=== PATIENT | female | born 1930 | race Caucasian/White ===

== ENCOUNTER 2016-10-22 12:28 | Inpatient (IN) | payer MEDICARE ==
[~2016-10-22] VITALS: Ht 167.6 cm; Wt 47.7 kg
[2016-10-22 13:48] LABS: HEMATOCRIT 38.9 % (36.0-48.0); HEMOGLOBIN 12.4 g/dL (12-16); MCH 31.4 pg (26.0-34.0); MCHC 31.9 g/dL (31.0-37.0); MCV 98.5 fL (80.0-100.0); MEAN PLATELET VOLUME 11.1 fL (7.4-10.4); PLATELET COUNT 119 10x3/uL (130-400); RBC 3.95 10x6/uL (4.00-5.40); RDW 13.6 % (11.5-14.5); WBC 27.5 10x3/uL (4.8-10.8)
[2016-10-22 14:08] LABS: ALBUMIN 3.6 g/dL (3.4-5.0); ANION GAP 12.1 mmol/L (8-16); BILIRUBIN - TOTAL 0.17 mg/dL (0.2-1.3); CALCIUM 9.8 mg/dL (8.5-10.1); CARBON DIOXIDE 26.8 mmol/L (21.0-32.0); CREATININE - SERUM 0.8 mg/dL (0.6-1.3); EOSINOPHILS 1 % (0-7); LYMPHOCYTES 14 % (15-50); NEUTROPHILS 80 % (40-80); POTASSIUM - SERUM 3.9 mmol/L (3.5-5.1); PROTEIN - SERUM 7.7 g/dL (6.4-8.2)
[2016-10-22 14:09] LABS: PLATELET ESTIMATE NORMAL; PLATELET MORPHOLOGY PLT CLUMPS PRESENT
[2016-10-22 14:13] LABS: APPEARANCE HAZY (CLEAR); BILIRUBIN NEGATIVE (NEGATIVE); COLOR YELLOW (YELLOW); GLUCOSE NEGATIVE (NEGATIVE); KETONE NEGATIVE (NEGATIVE); LEUKOCYTE ESTERASE 1+ (NEGATIVE); NITRITE NEGATIVE (NEGATIVE); PROTEIN NEGATIVE (NEGATIVE); UROBILINOGEN NORMAL (NORMAL)
[2016-10-22 14:21] LABS: RED CELLS - URINE 0-5 /hpf (0-5); WHITE CELLS - URINE 25-50 /hpf (0-5)
[2016-10-22 14:22] LABS: BACTERIA FEW /hpf (NONE SEEN); EPITHELIAL CELLS OCC /hpf (0-5); HYALINE CAST RARE /lpf (NONE SEEN)
--- NOTE | 2016-10-22 18:46 | NUR ---
HOUSE SUP CALLED ABOUT PT DO TO ER DOING [id number] FSBS. CHECHED PT AT 1840, BS 97. AWAITING A CALL BACK.
--- NOTE | 2016-10-22 18:48 | NUR ---
PT ARRIVED TO FLOOR VIA BED WITH ER STAFF. ER WAS CHECKING FSBS Q30MIN - Q1HR. CHECHED BLOOD SUGAR WHEN PT ARRIVED TO FLOOR. FSBS WAS 97. ROCEPHIN BROUGHT WITH PT BECAUSE PT C/O PAIN AT SITE. TRIED TO FLUSH PT'S IV AND PT WAS IN PAIN. WAS NOT ABLE TO DRAW BACK FROM IV. IV SITE IS NOT SWOLLEN, IS SLIGHTLY RED. PT HAS HX OF DEMENTIA. FAMILY AT BEDSIDE. BED AT LOWEST POSITION, CALL BAH IN USE/REACH, SIDE RAILS UP X2. BP 109/49 LEFT ARM RESP 18 POX 99% ON RA TEMP 98.1 WILL CONTINUE TO MONITOR.
--- NOTE | 2016-10-22 19:01 | NUR ---
RECHECKED FSBS AND WAS 96
[2016-10-22 20:00] VITALS: BP 123/61
--- NOTE | 2016-10-22 20:38 | NUR ---
2000) REC'D. PT. ALERT ORIENTED TO PERSON. SON AT BEDSIDE DR. BURTON HERE.IV SITED LFA BY DAY SHIFT CHARGE NURSE #22.COMBATIVE DURING PROCEDURE.WILL CONTINUE TO MONITOR FSBS AND FOLLOW CURRENT PLAN OF CARE.
[2016-10-23] VITALS: BP 107/41
[2016-10-23 06:09] LABS: BASOPHILS 0.4 % (0-2); EOSINOPHILS 4.3 % (0-7); HEMATOCRIT 33.5 % (36.0-48.0); HEMOGLOBIN 10.6 g/dL (12-16); IMMATURE GRANULOCYTES 0.2 % (0-5); LYMPHOCYTES 27.8 % (15-50); MCH 30.9 pg (26.0-34.0); MCHC 31.6 g/dL (31.0-37.0); MCV 97.7 fL (80.0-100.0); MEAN PLATELET VOLUME 11.3 fL (7.4-10.4); MONOCYTES 7.9 % (2-11); NEUTROPHILS 59.4 % (40-80); RBC 3.43 10x6/uL (4.00-5.40)
[2016-10-23 06:10] LABS: PLATELET COUNT 284 10x3/uL (130-400)
[2016-10-23 06:38] LABS: ALBUMIN 2.7 g/dL (3.4-5.0); ANION GAP 11.5 mmol/L (8-16); BILIRUBIN - TOTAL 0.31 mg/dL (0.2-1.3); CALCIUM 8.7 mg/dL (8.5-10.1); CARBON DIOXIDE 24.9 mmol/L (21.0-32.0); CREATININE - SERUM 0.8 mg/dL (0.6-1.3); POTASSIUM - SERUM 4.4 mmol/L (3.5-5.1); PROTEIN - SERUM 6.5 g/dL (6.4-8.2)
--- NOTE | 2016-10-23 07:52 | NUR ---
AM ROUNDING- RECEIVED REPORT FROM CELEBRITY MANAGER NURSE LUZMARIA. PT IS CURRENTLY LAYING IN BED ON BACK WITH EYES CLOSED RESTING. GUEST IS AT BEDSIDE. ON 02 AT 2L VIA NC. NO MONITOR. IV SEEN TO LEFT FOREARM WITH D5NS RUNNING AT 125CC. BED IS IN LOW POSITION, SIDE RAILS ARE UP X2, AND CALL LIGHT IS IN REACH. WILL CONTINUE TO MONITOR AND CONTINUE WITH PLAN OF CARE.
[2016-10-23 08:00] VITALS: BP 126/48; BP 127/50
--- NOTE | 2016-10-23 09:15 | NUR ---
PTS BLOOD SUGAR IS 314 CURRENTLY.
--- NOTE | 2016-10-23 09:29 | NUR ---
UPON DOING PTS AM MEDICATIONS, NOTICED IV SITE WAS LEAKING. ATTEMPTED TO CLEAN AND RESITE PTS IV HOWEVER IV CATHETER CAME OUT, CATH TIP INTACT. COVERED SITE WITH 2X2 GUAZE PADS AND SECURED WITH TAPE. WILL ATTEMPT TO RESITE PT.
--- NOTE | 2016-10-23 11:07 | NUR ---
TUCKER ISLAS SITED PT WITH 22G IV CATHETER TO LEFT UPPER ARM.
[2016-10-23 12:00] VITALS: BP 126/48
[2016-10-23 12:15] VITALS: BMI 16.9
--- NOTE | 2016-10-23 15:14 | NUR ---
DR. BURTON ON UNIT NOW. RECEIVED VERBAL ORDERS TO PLACE PT ON SLIDING SCALE AND TO D/C IV FLUIDS. WILL DO ORDERED AND CONTINUE TO MONITOR.
[2016-10-23 16:00] VITALS: BP 123/44
--- NOTE | 2016-10-23 17:12 | NUR ---
PT IS CURRENLTY SITTING UP IN BED, SON IS AT BEDSIDE ASSISTED PT EAT DINNER. NO NEED AT CURRENT TIME. BED IS IN LOW POSITION, SIDE RAILS ARE UP X2, CALL LIGHT IS IN REACH, AND NON-SKID SOCKS ARE ON. WILL CONTINUE TO MONITOR.
--- NOTE | 2016-10-23 17:48 | NUR ---
0968- UPON DOING PTS SHIFT ASSESSMENT, I NOTICED PTS LEFT FOREARM WAS VERY RED. PT DENIES ANY PAIN AT SITE. PTS SON STATES THAT IT HAS BEEN RED LIKE THAT SINCE PT HAS BEEN IN THE HOSPTIAL. WILL CONTINUE TO MONITOR.
--- NOTE | 2016-10-23 18:17 | NUR ---
1130- SINCE PTS IV CATHETER CAME OUT IV FLUIDS HAVE NOT YET BEEN RESTARTED. WHEN CHECKED PTS BLOOD SUGAR THIS AM IT WAS 316. WILL HOLD IV FLUIDS (D5NS) UNTIL DR. BURTON MAKES ROUNDS TO ASK HER ABOUT THIS. WILL CONTINUE TO MONITOR.
--- NOTE | 2016-10-23 18:18 | NUR ---
CALLED DR. BURTON AND RECEIVED IMMEDIATE CALLBACK REGARDING PTS LEFT FOREARM AND HOW RED IT IS. I INFORMED DR. BURTON OF PTS IV CATHETER COMING OUT THIS AM AND THAT PT WAS RECEIVING D5NS AT 125CC/HR AT THAT CURRENT TIME. I INFORMED DR. BURTON THAT D5 COULD HAVE CAUSED THE REDNESS TO PTS FOREARM BUT I WASN'T SURE, DR. BURTON STATES D5 COULD CAUSE IT TO BE RED LIKE THAT. I INFORMED DR. BURTON THAT PT DENIES ANY PAIN FROM SITE AND THAT I JUST WANTED HER TO BE AWARE OF THIS. I ALSO INFORMED DR. BURTON THAT PTS SON STATES THAT PTS ARM HAS BEEN RED LIKE THAT SINCE BEING IN HOSPITAL BUT NOT RED. NO NEW ORDERS RECEIVED. WILL CONTINUE TO MONITOR.
--- NOTE | 2016-10-23 19:50 | NUR ---
ASSISTED PT TO BATHROOM AND BACK TO BED.
[2016-10-23 20:00] VITALS: BP 135/57
--- NOTE | 2016-10-23 22:50 | NUR ---
ASSISTED PT TO BATHROOM AND BACK TO BED.
--- NOTE | 2016-10-24 02:43 | NUR ---
RESTING IN BED WITH NO DISTRESS. CPOC.
[2016-10-24 04:00] VITALS: BP 111/85
[2016-10-24 04:39] LABS: BASOPHILS 0.6 % (0-2); EOSINOPHILS 3.8 % (0-7); HEMATOCRIT 31.3 % (36.0-48.0); HEMOGLOBIN 10.2 g/dL (12-16); IMMATURE GRANULOCYTES 0.2 % (0-5); MCH 31.7 pg (26.0-34.0); MCHC 32.6 g/dL (31.0-37.0); MCV 97.2 fL (80.0-100.0); MEAN PLATELET VOLUME 10.3 fL (7.4-10.4); MONOCYTES 8.2 % (2-11); NEUTROPHILS 59.2 % (40-80); PLATELET COUNT 247 10x3/uL (130-400); RBC 3.22 10x6/uL (4.00-5.40); RDW 13.4 % (11.5-14.5); WBC 9.2 10x3/uL (4.8-10.8)
[2016-10-24 05:02] LABS: ANION GAP 8.8 mmol/L (8-16); CALCIUM 8.9 mg/dL (8.5-10.1); CARBON DIOXIDE 26.7 mmol/L (21.0-32.0); CREATININE - SERUM 0.8 mg/dL (0.6-1.3); POTASSIUM - SERUM 4.5 mmol/L (3.5-5.1)
--- NOTE | 2016-10-24 07:30 | NUR ---
STANDING UP BESIDE BED CONFUSED. ASSISTED PT WITH CHANGING GOWN AND BED LINEN DUE TO LARGE URINE INCONTINENCE. ALERT AND ORIENTED TO PERSON. NO FAMILY AT BEDSIDE AT THIS TIME. ASSISTED PT BACK TO BED CALL LIGHT IN REACH. ALARM ON. WILL CONTINUE TO MONITOR.
--- NOTE | 2016-10-24 10:12 | NUR ---
ATTEMPTED TO SITE IV LEFT UPPER ARM, PT STARTED SCREAMING AND YELLING SAYING "NO NO". PT AND PT'S SON DOES NOT WANT ANY FURTHER IV AND WOULD LIKE TO SWITCH MEDS TO ORAL IF POSSIBLE. WILL DISCUSS WITH PT
--- NOTE | 2016-10-24 10:46 | NUR ---
PROTONIX WAS NOT ADMINISTERED DUE TO NO IV ACCESS AND PT AND FAMILY REFUSED ANY MORE IV STICKS. PAGED DR. ALBRECHT TO SEE IF WE COULD SWITCH MEDS TO PO.
[2016-10-24 11:00] VITALS: BP 131/53
[2016-10-24 12:43] VITALS: BP 120/48
--- NOTE | 2016-10-24 14:18 | NUR ---
PT IN BED, DENIES ANY NEEDS AT THIS TIME. BED LOW AND WHEELS LOCKED, BEDSIDE RAILS X2, BED ALARM ON. FAMILY AT BEDSIDE, NAD NOTED, WILL CONTINUE TO MONITOR.
--- NOTE | 2016-10-24 16:24 | NUR ---
BLOOD SUGAR OF 225, 4UNITS OF HUMALOG GIVEN PER S/S. TO RLQ, ALSO HELPED PT TO BATHROOM AND BACK TO BED. PT DENIES ANY OTHER NEEDS CALL LIGHT IN REACH, SON AT BEDSIDE, NAD NOTED, WILL CONTINUE TO MONITOR.
[2016-10-24 16:50] VITALS: BP 130/51
--- NOTE | 2016-10-24 16:58 | NUR ---
Patient Name: ANTHONY ROSS Admission Status: ER Accout number: [id number] Admission Date: 10-22-2016 : 1930 Admission Diagnosis: Attending: KAMLESH Current LOS: 2 Anticipated DC Date: Planned Disposition: Nursing Facility KIA Cert Primary Insurance: MEDICARE A & B PLANNED EXTERNAL PROVIDER: [facility], LONG TERM CARE MEDICAID BED Discharge Planning Comments: * Is the patient Alert and Oriented? No 0 * How many steps to enter\exit or inside your home? NONE 0 * PCP DR. ALBRECHT 0 * Pharmacy [facility] 0 * Preadmission Environment [facility] * Facility Name [facility] 0 * ADLs Partial Dependent 0 * Partial ADLs (Assistance needed) Ambulation Bathing Dressing Medication Management Toileting Transfers 0 * Equipment Other 0 * Other Equipment ALL EQUIPMENT PROVIDED BY CUSTODIAL FACILITY 0 * List name and contact numbers for known caregivers / representatives who currently or will assist patient after discharge: ROSITA MANCERA, SON, 0 * Community resources currently utilized None 0 * Please name any agencies selected above. NONE 0 * Additional services required to return to the preadmission environment? No 0 * Can the patient safely return to the preadmission environment? Yes 0 * Has this patient been hospitalized within the prior 30 days at any hospital? No 0 CM MET WITH PT AND SON IN ROOM TO DISCUSS DISCHARGE PLANNING AND NEEDS. PT PLEASANT BUT NOT ANSWER QUESTIONS AND REFERRED CM TO SPEAK TO HER SON. PT'S SON REPORTS PT LIVING AT [facility] AND WILL RETURN THERE AT DISCHARGE. PTS' SON, COLTON, REPORTS THAT HE VISITS HIS MOTHER TWICE DAILY TO EAT TWO MEALS WITH HIS MOTHER AT THE SNF. PT IS DEPENDENT UPON STAFF FOR HER CARE AND HAS SEVERE DEMENTIA. IMPORTANT MESSAGE FROM MEDICARE PROVIDED AND EXPLAINED. CM CALLED AND SPOKE TO SHENG AT [facility], , WHO VERIFIED PT IS CARE HOME CARE RESIDENT AND WILL RETURN TO [facility] AT DISCHARGE. FOR DISCHARGE, FAX DISCHARGE INFORMATION TO [facility] AT [phone]. NURSE REPORT TO BE CALLED TO [facility] AT [phone]. IF PT IS ABLE TO SIT SAFELY FOR DURATION OF TRIP [facility] TO ARRANGE VAN TRANSPORTATION. Oracle Application Architect: Ortiz Mahoney
--- NOTE | 2016-10-24 19:15 | NUR ---
ALERT AWAKE WATCHING TV. DENIES PAIN OR ANY NEEDS. HER SON IS PRESENT IN ROOM. NO QUESTIONS OR CONCERNS VOICED.
[2016-10-24 20:00] VITALS: BP 134/56
--- NOTE | 2016-10-24 22:05 | NUR ---
CHECKED BS AT 215. ADMIN HUMALOG 4 UNITS. ASSISTED WITH PULLING UP INTO BED. NO OTHER NEEDS VOICED.
[2016-10-25] VITALS: BP 128/62
--- NOTE | 2016-10-25 04:09 | NUR ---
RESTING QUIETLY WITH EYES CLOSED. RR EVEN U/L. NO S/S OF DISTRESS OR DISCOMFORT. SON SITTING IN RECLINER. ASKED BODY TECHNICIAN/PAINTER NOT TO TAKE VS UNTIL SHE IS AWAKE.
--- NOTE | 2016-10-25 06:40 | NUR ---
CHECKED BS AT 130. NO INSULIN REQUIRED PER SLIDING SCALE. DENIES ANY NEEDS. HER SON IS PRESENT IN ROOM.
[2016-10-25 07:12] VITALS: BP 126/60; Ht 167.6 cm; Wt 47.7 kg
--- NOTE | 2016-10-25 07:27 | NUR ---
DID BAR TURNER ASSESSMENT PER KSENIA CAVANAUGH'S INSTRUCTION.
--- NOTE | 2016-10-25 07:27 | NUR ---
AM ROUNDING- RECEIVED REPORT FROM BULL RIDER NURSE VERITO. PT IS CURRENTLY LAYING IN BED WITH EYES CLOSED RESTING. SON IS AT BEDSIDE. DNR PER ORDER. NO IV ACCESS (DOCTOR IS AWARE). ON ROOM AIR. NO MONITOR. NO NEED AT CURRENT TIME. WILL CONTINUE TO MONITOR AND CONTINUE WITH PLAN OF CARE.
[2016-10-25 12:00] VITALS: BP 133/59
--- NOTE | 2016-10-25 14:36 | NUR ---
DR. BURTON ON UNIT. DR. BURTON STATES PT CAN BE D/C BACK TO [facility] AND STAY ON IM ROCPEPHIN FOR 4 MORE DAYS. WILL PUT ORDERS IN GIVEN AND CONTINUE TO MONITOR.
[2016-10-25] MEDS ORDERED: MEGACE ES625 MG/5 M PO (15:18)
[2016-10-25] MEDS ORDERED: Rocephin INJ IM (15:18)
[2016-10-25] MEDS ORDERED: FLORAJEN3 CAPS460 MG PO (15:19)
[2016-10-25] MEDS ORDERED: HUMALOG 30100 UNITS/ SC (15:21)
--- NOTE | 2016-10-25 15:41 | NUR ---
Patient Name: ANTHONY ROSS Encounter No: [id number] : 1930 Primary Insurance: MEDICARE A & B Anticipated DC Date: 10-25-2016 Planned Disposition: Nursing Facility KIA Cert External Planned Provider: [facility], LONG TERM CARE MEDICAID BED DCP follow-up note: CM RECEIVED DISCHARGE ORDER FAXED DISCHARGE INFORMATION TO [facility] AT [phone]. CM NOTIFIED LONNIE AT [facility] AND ASKED ABILIO THEY BRING WHEELCHAIR AND CLOTHES FOR PT AT PT'S SON'S REQUEST. CM SPOKE TO PT'S SON IN ROOM WHO IS IN AGREEMENT WITH DISCHARGE PLAN BACK TO [facility] TODAY. CM RECEIVED CALL, WAS NOTIFIED BY LONNIE THAT [facility] WILL INSTRUMENTATION ENGINEER PT AT 1630 HOURS. RIDING DOUBLE AND BEDSIDE NURSE NOTIFIED. NURSE REPORT TO BE CALLED TO [facility] AT [phone]. [facility] TO [facility] TRANSPORTATION SCHEDULED FOR 4:30PM. Outside Repairer Special: Ortiz Mahoney
--- NOTE | 2016-10-25 16:14 | NUR ---
D/C INSTRUCTIONS EXPLAINED TO PT AND FAMILY (PT IS CONFUSED). D/C PAPERWORK SIGNED BY PTS SON. NO IV ACCESS TO REMOVE. AWAITING [facility] TO COME GET PT. WILL CONTINUE TO MONITOR.
--- NOTE | 2016-10-25 16:49 | NUR ---
[facility] HERE TO GET PT. SHALOM CRAMER IS ASSISTING PT GETTING DRESSED NOW.
--- NOTE | 2016-10-25 17:28 | NUR ---
1652- PT D/C VIA WHEELCHAIR BACK TO [facility].
== END 2016-10-25 17:30 | DRG 872 ==
LOC: D.ER 12:28 → D.M2 16:35
PROVIDERS: Family Medicine; Nurse Practitioner Family; ADMIT Family Medicine
DX: A41.9 Sepsis, unspecified organism (principal); N39.0 Urinary tract infection, site not specified; E44.0 Moderate protein-calorie malnutrition; Z68.1 Body mass index [BMI] 19.9 or less, adult; E11.649 Type 2 diabetes mellitus with hypoglycemia without coma; Z79.4 Long term (current) use of insulin; I10 Essential (primary) hypertension; G30.9 Alzheimer's disease, unspecified; F02.80 Dementia in other diseases classified elsewhere, unspecified severity, without behavioral disturbance, psychotic disturbance, mood disturbance, and anxiety; Z74.09 Other reduced mobility; Z66 Do not resuscitate; M54.5 Low back pain; G89.29 Other chronic pain; F80.89 Other developmental disorders of speech and language